=== PATIENT | female | born 1970 | race Two or more races ===

== ENCOUNTER 2024-05-16 09:28 | Emergency (ER) | payer OTHER ==
[~2024-05-16] VITALS: Ht 157.5 cm; Wt 61.2 kg
[2024-05-16] MEDS ORDERED: BUTALB/ACETAMINOPHEN/CAFFEINE 1 TAB TABLET PO ONE (09:45)
[2024-05-16] MEDS ORDERED: FAMOtidine 10 MG/ML (4ML VIAL) IV PUSH ONE (10:00)
[2024-05-16 11:02] LABS: HEMATOCRIT 41.3 % (36.0-45.00); HEMOGLOBIN 13.7 g/dL (12.0-15.00); MEAN CELL VOLUME 81.6 fL (80.00-100.00); PLATELET COUNT 307 K/uL (150-450); RED BLOOD COUNT 5.06 M/uL (4.00-6.00); RED CELL DISTRIBUTION WIDTH 14.4 % (11.5-14.5)
[2024-05-16 12:04] LABS: ALBUMIN 4.6 gm/dL (3.4-5.0); BILIRUBIN TOTAL 0.48 mg/dL (0.3-1.2); CALCIUM 10.3 mg/dL (8.5-10.1); CREATININE SERUM 0.57 mg/dL (0.55-1.02); GFR 110.95; POTASSIUM 4.07 mEq/L (3.5-5.1); TOTAL PROTEIN 8.6 gm/dL (6.4-8.2)
[2024-05-16] MEDS ORDERED: BUTALB-ACETAMI1 EAC2 PO (14:56)
== END 2024-05-16 14:59 | disposition home or self-care (01) ==
LOC: ER 09:28
PROVIDERS: General Practice
DX: R51.9 Headache, unspecified (principal); Z20.822 Contact with and (suspected) exposure to COVID-19; E11.9 Type 2 diabetes mellitus without complications

== ENCOUNTER 2024-06-25 08:11 | Emergency (ER) | payer OTHER ==
[~2024-06-25] VITALS: Ht 157.5 cm; Wt 61.7 kg
[~2024-06-25 08:11] MED LIST: BUTALB-ACETAMI1 EAC2 PO
[2024-06-25] MEDS ORDERED: METFORMIN HCL1000 M2 PO (08:27)
[2024-06-25] MEDS ORDERED: KETOROLAC TROMETHAMINE 60 MG VIAL IM STA (08:48)
[2024-06-25] MEDS ORDERED: KETOROLAC TROMETHAMINE 60 MG VIAL IM ONE (08:49)
== END 2024-06-25 10:42 | disposition home or self-care (01) ==
LOC: ER 08:11
DX: M25.511 Pain in right shoulder (principal); M62.838 Other muscle spasm; Z91.018 Allergy to other foods